=== PATIENT | female | born 1965 | race African-American/Black ===

== ENCOUNTER 2017-04-24 10:48 | Emergency (ER) | payer OTHER ==
[2017-04-24 11:03] VITALS: BMI 42.3
--- NOTE | 2017-04-24 11:32 | PDOC ---
History of Present Illness - General History Source: Patient Exam Limitations: No Limitations - History of Present Illness Initial Comments: 04/24/17 12:07 The patient is a 52 year old female, with a significant past medical history of hypertension(on hydrochlorothiazide), who presents to the emergency department complaining of left-sided neck pain and palpitations for approximately 5 days. The patient reports she first noted her neck pain after she ate a walnut muffin on Saturday. Her pain is non radiating in nature and intermittent. She denies any associated chest pain, shortness of breath, diaphoresis, or palpitations. She denies any numbness, tingling, or weakness. Patient reports she was started on aspirin, but she admits she is noncompliant with her medication. Patient reports she experienced palpitations since she started her aspirin, which is why she stopped it. She denies any fever, chills, cough, headache, or dizziness. She denies any abdominal pain, nausea, vomiting, diarrhea, or constipation. She denies any recent travel or sick contacts. Allergies: NKDA Past Surgical History: None reported Social History: Non smoker. No ETOH or drug use. PCP: Dr. Yahir Ruiz Inventory Management Specialist: Dr. Hodge <Bernardo Crane - Last Filed: 04/24/17 16:00> <Yoel Ross - Last Filed: 04/24/17 16:56> - General Chief Complaint: Palpitations Stated Complaint: PALPITATIONS, FEELING WARM Time Seen by Provider: 04/24/17 11:31 Past History <Bernardo Crane - Last Filed: 04/24/17 16:00> - Past Medical History HTN: Yes - Psycho/Social/Smoking Cessation Hx Anxiety: No Suicidal Ideation: No Smoking History: Never smoked Have you smoked in the past 12 months: No Information on smoking cessation initiated: No Hx Alcohol Use: No Drug/Substance Use Hx: No Substance Use Type: None <Yoel Ross - Last Filed: 04/24/17 16:56> - Past Medical History Allergies/Adverse Reactions: Allergies Allergy/AdvReac Type Severity Reaction Status Date / Time No Known Allergies Allergy Verified 04/24/17 10:59 Home Medications: Ambulatory Orders Hydrochlorothiazide 25 mg PO DAILY 04/24/17 Review of Systems - Review of Systems Able to Perform ROS?: Yes Comments:: 04/24/17 12:08 GENERAL/CONSTITUTIONAL: No fever or chills. No weakness. HEAD, EYES, EARS, NOSE AND THROAT: No change in vision. No ear pain or discharge. No sore throat. CARDIOVASCULAR: Yes: +palpitations. No chest pain or shortness of breath. RESPIRATORY: No cough, wheezing, or hemoptysis. GASTROINTESTINAL: No nausea, vomiting, diarrhea or constipation. GENITOURINARY: No dysuria, frequency, or change in urination. MUSCULOSKELETAL: Yes: +left neck pain. No joint or muscle swelling or pain. No back pain. SKIN: No rash NEUROLOGIC: No headache, vertigo, loss of consciousness, or change in strength/ sensation. ENDOCRINE: No increased thirst. No abnormal weight change. HEMATOLOGIC/LYMPHATIC: No anemia, easy bleeding, or history of blood clots. ALLERGIC/IMMUNOLOGIC: No hives or skin allergy. <Bernardo Crane - Last Filed: 04/24/17 16:00> *Physical Exam - Vital Signs Last Vital Signs Temp Pulse Resp BP Pulse Ox 98.1 F 71 18 132/71 100 04/24/17 10:59 04/24/17 10:59 04/24/17 10:59 04/24/17 10:59 04/24/17 10:59 - Physical Exam Comments: 04/24/17 12:08 GENERAL: Awake, alert, and fully oriented, in no acute distress HEAD: No signs of trauma EYES: PERRLA, EOMI, sclera anicteric, conjunctiva clear ENT: Auricles normal inspection, hearing grossly normal, nares patent, oropharynx clear without exudates. Moist mucosa NECK: Normal ROM, supple, no lymphadenopathy, JVD, or masses LUNGS: Breath sounds equal, clear to auscultation bilaterally. No wheezes, and no crackles HEART: Regular rate and rhythm, normal S1 and S2, no murmurs, rubs or gallops ABDOMEN: Soft, nontender, normoactive bowel sounds. No guarding, no rebound. No masses EXTREMITIES: Normal range of motion, no edema. No clubbing or cyanosis. No cords, erythema, or tenderness NEUROLOGICAL: Cranial nerves II through XII grossly intact. Normal speech, normal gait SKIN: Warm, Dry, normal turgor, no rashes or lesions noted. <Bernardo Crane - Last Filed: 04/24/17 16:00> - Vital Signs Last Vital Signs Temp Pulse Resp BP Pulse Ox 98.1 F 71 18 132/71 100 04/24/17 10:59 04/24/17 10:59 04/24/17 10:59 04/24/17 10:59 04/24/17 10:59 <Yoel Ross - Last Filed: 04/24/17 16:56> Heart Score/ECG Review - [place] Comment: 04/24/17 14:44 Vent Rate: 63 bpm IMPRESSION: Normal sinus rhythm. Possible left atrial enlargement. T wave abnormality, consider anterior ischemia. <Bernardo Crane - Last Filed: 04/24/17 16:00> ED Treatment Course - LABORATORY CBC & Chemistry Diagram: 04/24/17 12:17 04/24/17 12:17 - RADIOLOGY Radiograph Interpretation: 04/24/17 16:00 EXAM: CXR INTERPRETED BY: Dr. Gonzalez REVIEWED BY: Dr. Ross IMPRESSION: No evidence of CHF. No pulmonary consolidations are seen in the visualized lungs. Limited evaluation of the left retrocardiac region, obscured by the cardiac silhouette, soft tissues of the chest <Bernardo Crane - Last Filed: 04/24/17 16:00> - LABORATORY CBC & Chemistry Diagram: 04/24/17 12:17 04/24/17 12:17 <Yoel Ross - Last Filed: 04/24/17 16:56> *DC/Admit/Observation/Transfer - Attestations Scribe Attestion: 04/24/17 12:09 Documentation prepared by Bernardo Crane, acting as medical records assistant for Yoel Ross DO. <Bernardo Crane - Last Filed: 04/24/17 16:00> - Discharge Dispostion Admit: No - Attestations Physician Attestion: 04/24/17 11:32 I, Dr. Yoel Ross, attest that this document has been prepared under my direction and personally reviewed by me in its entirety. I further attest, that it accurately reflects all work, treatment, procedures and medical decision -making performed by me. <Yoel Ross - Last Filed: 04/24/17 16:56> Diagnosis at time of Disposition: Palpitations - Discharge Dispostion Disposition: HOME Condition at time of disposition: Good - Patient Instructions Printed Discharge Instructions: DI for Palpitations Additional Instructions: Follow up with Dr. Luis and Dr. Ruiz- No change in medicines or activity
[2017-04-24 12:25] LABS: EOSINOPHIL 0.7 % (0-4.5); MCH 29.5 pg (25.7-33.7); MCHC 33.1 g/dl (32.0-36.0); MEAN CELL VOLUME 89.1 fl (80-96); MEAN PLT VOLUME 8.6 fl (7.5-11.1); NEUTROPHILS 49.5 % (42.8-82.8); PLATELET COUNT 223 K/MM3 (134-434); RDW 14.1 % (11.6-15.6); WHITE BLOOD COUNT 4.2 K/mm3 (4.0-10.0)
[2017-04-24 12:41] LABS: ALBUMIN 3.8 g/dl (3.4-5.0); ANION GAP 8 (8-16); CALCIUM 9.3 mg/dL (8.5-10.1); CO2 30 mmol/L (21-32); GLUCOSE,RANDOM 91 mg/dL (74-106); SGOT/AST 13 U/L (15-37); SGPT/ALT 22 U/L (12-78)
[2017-04-24 12:45] LABS: ALK PHOS 106 U/L (45-117); BILIRUBIN,TOTAL 0.4 mg/dL (0.2-1.0); CPK 136 IU/L (26-192); TOT PROT 7.7 g/dl (6.4-8.2); TROPONIN I < 0.02 ng/ml (0.00-0.05)
[2017-04-24 14:18] LABS: INR 1.07 (0.82-1.09); PROTHROMBIN TIME (PATIENT) 11.8 SEC (9.98-11.88)
--- NOTE | 2017-04-24 14:34 | EKG ---
Test Reason : Blood Pressure : / mmHG Vent. Rate : 063 BPM Atrial Rate : 063 BPM P-R Int : 154 ms QRS Dur : 092 ms QT Int : 408 ms P-R-T Axes : 070 014 007 degrees QTc Int : 417 ms NORMAL SINUS RHYTHM POSSIBLE LEFT ATRIAL ENLARGEMENT T WAVE ABNORMALITY, CONSIDER ANTERIOR ISCHEMIA ABNORMAL ECG NO PREVIOUS ECGS AVAILABLE Confirmed by MAGAN FOX MD ([id number]) on 04/24/2017 2:34:01 PM Referred By: Confirmed By:MAGAN FOX MD
[2017-04-24 17:35] VITALS: BP 148/84; PULSE 82; TEMP 98.7
== END 2017-04-24 17:35 | disposition home or self-care (01) ==
LOC: JER 10:48
DX: R00.2 Palpitations (principal); I10 Essential (primary) hypertension
CPT/HCPCS: 36415; 71010-TC; 80053; 84484; 85025; 85379; 85610; 93005; 93010; 99284-25